=== PATIENT | male | born 1960 | race Caucasian/White ===

== ENCOUNTER → 2017-04-17 | Outpatient (CLI) | payer OTHER | LOC: FIMAGING 08:14 | PROVIDERS: ATTEND Family Medicine | DX: R19.07 Generalized intra-abdominal and pelvic swelling, mass and lump (principal) ==

== ENCOUNTER → 2018-07-05 | Outpatient (CLI) | payer OTHER | LOC: MERGE 07:51 → FIMAGING 07:51 | PROVIDERS: ATTEND Nurse Practitioner | DX: R51 Headache (principal); Z98.2 Presence of cerebrospinal fluid drainage device ==

== ENCOUNTER → 2018-07-06 | Outpatient (CLI) | payer OTHER | LOC: FIMAGING 11:01 | PROVIDERS: ATTEND Nurse Practitioner | DX: Z09 Encounter for follow-up examination after completed treatment for conditions other than malignant neoplasm (principal); Z96.89 Presence of other specified functional implants ==